=== PATIENT | male | born 1990 | race Caucasian/White ===

== ENCOUNTER 2019-07-15 12:09 | Emergency (ER) | payer OTHER, SELFPAY ==
--- NOTE | ~2019-07-15 | XR_ITS ---
EXAMINATION: XR shoulder RT min 2V INDICATION: Right shoulder pain, initial encounter TECHNIQUE: Four views of the right shoulder are submitted. COMPARISON: None FINDINGS: There is an acute fracture at the distal aspect of the clavicle. Acromioclavicular joint al ignment is maintained. The glenohumeral joint space is normal. Soft tissue swelling surrounds the fra cture. IMPRESSION: Acute fracture of the distal clavicle. Reviewed, dictated and finalized at location A.
--- NOTE | ~2019-07-15 | XR_ITS ---
EXAMINATION: XR knee LT min 4V DATE: 07/15/2019 14:22 INDICATION: Left knee pain, initial encounter TECHNIQUE: Three views of the left knee were obtained. COMPARISON: None. FINDINGS: There is an oblique lucency at the superolateral aspect of the patella. Joint spaces are no rmal with no erosions. No joint effusion/synovitis. There is anterior soft tissue swelling of the k nee. IMPRESSION: 1. Oblique lucency at the superolateral aspect of the patella suspicious for acute fracture, bipartit e patella considered less likely. Reviewed, dictated and finalized at location A. IMPRESSION: 1. Oblique lucency at the superolateral aspect of the patella suspicious for ac lyle fracture, bipartite patella considered less likely.
--- NOTE | ~2019-07-15 | XR_ITS ---
EXAMINATION: XR knee RT 3V DATE: 07/15/2019 14:22 INDICATION: Right knee pain TECHNIQUE: Three views of the right knee were obtained. COMPARISON: None. FINDINGS: Alignment is normal. No fracture or osteochondral lesion. Joint spaces are normal with no e rosions. No joint effusion/synovitis. There is medial knee soft tissue swelling. IMPRESSION: 1. Soft tissue swelling without acute osseous abnormality. Reviewed, dictated and finalized at location A.
--- NOTE | ~2019-07-15 | CT_ITS ---
EXAMINATION: CT brain wo con INDICATION: Headache COMPARISON: None TECHNIQUE: Standard unenhanced head CT. The dose-length product (DLP) was 605.33 mGy-cm. The mA was a djusted according to patient size. Iterative reconstruction technique was employed. FINDINGS: There is no intracranial hemorrhage, acute infarction, or abnormal mass lesion. The ventric les are normal. There is no abnormal mass effect or midline shift. The mcgarry-white matter differentiat ion is normal. The basal cisterns are patent. The orbits are normal. The paranasal sinuses, mastoids and calvarium are normal. IMPRESSION: 1. No acute intracranial abnormality. Reviewed, dictated and finalized at location A.
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
--- NOTE | ~2019-07-15 | CT_ITS ---
EXAMINATION: CT cervical spine wo con DATE: 07/15/2019 14:52 INDICATION: Neck pain TECHNIQUE: Computed tomography (CT) of the cervical spine was performed without intravenous contrast. The dose-length product (DLP) was 445.40 mGy-cm. Automated exposure control and iterative reconstruc tion technique were employed. COMPARISON: None FINDINGS: There is no fracture, dislocation, or subluxation. The vertebral body heights, alignment, a nd intervertebral disc spaces are normal. The paravertebral soft tissues are unremarkable. The odonto id is intact. IMPRESSION: 1. No fracture. Reviewed, dictated and finalized at location A. IMPRESSION: 1. No fracture.
[2019-07-15 12:13] VITALS: BP 145/99; PULSE 111; RESP 18; TEMP 37; O2SAT 100
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
[2019-07-15] MEDS: LACTATED RINGERS 1,000 ML 150 ML IV CONT (13:12)
[2019-07-15 13:13] LABS: Basophils Absolute Auto 0.1 K/mm3 (0.0-0.1); Basophils Percent Auto 0.3 % (0.2-1.2); Eosinophils Percent Auto 0.1 % (0-4.4); Hematocrit 46.4 % (42.0-52.0); Hemoglobin 15.8 g/dL (14.0-18.0); Immature Granulocyte Percent A 0.6 % (0-0.5); Lymphocytes Absolute Auto 2.62 K/mm3 (0.9-3.2); Lymphocytes Percent Auto 14.5 % (18.3-44.2); Mean Corpuscular HGB Conc 34.1 g/dl (32-36); Mean Corpuscular Hemoglobin 29.1 pg (26-34); Mean Corpuscular Volume 85.5 fl (80-100); Mean Platelet Volume 12.8 fl (7.4-10.4); Monocytes Absolute Auto 1.4 K/mm3 (0.1-0.6); Monocytes Percent Auto 7.8 % (2.6-8.5); Neutrophils Absolute Auto 13.9 K/mm3 (1.3-6.7); Neutrophils Percent Auto 76.7 % (45.5-73.1); Platelet Count Result 272 k/mm3 (150-375); Red Blood Count 5.43 M/mm3 (4.6-6.20); Red Cell Distribution Width 13.1 % (11.5-14.5); White Blood Count 18.1 K/mm3 (4.5-10.0)
[2019-07-15 13:25] LABS: Ethanol < 10 mg/dL (<10)
[2019-07-15 13:30] VITALS: BP 158/91; PULSE 98; RESP 20; O2SAT 100
[2019-07-15 14:45] LABS: Estimated CRCL calculation 105 ml/min; Estimated Glomerular Filt Rate > 60
[2019-07-15 14:47] LABS: Blood Urea Nitrogen 28 mg/dL (9-20); Calcium 9.5 mg/dL (8.4-10.2); Carbon Dioxide 24 mmol/L (22-30); Chloride 107 mmol/L (98-107); Estimated CRCL calculation 132 ml/min; Estimated Glomerular Filt Rate > 60; Glucose 94 mg/dL (75-110); Sodium 143 mmol/L (137-145)
[2019-07-15 15:11] VITALS: BP 147/97; PULSE 96; RESP 16; O2SAT 99
[2019-07-15] MEDS: ACETAMINOPHEN 500 MG TABLET 1000 MG PO (16:10)
[2019-07-15 17:14] VITALS: BP 138/78; PULSE 87; RESP 16; O2SAT 99
== END 2019-07-15 17:14 | disposition home or self-care (01) ==
PROVIDERS: Emergency Provider Emergency Medicine
DX: S42.031A Displaced fracture of lateral end of right clavicle, initial encounter for closed fracture (principal); V86.06XA Driver of dirt bike or motor/cross bike injured in traffic accident, initial encounter; S81.812A Laceration without foreign body, left lower leg, initial encounter
CPT/HCPCS: 12002; 36415; 70450; 71260; 72125; 73030; 73562; 73564; 74177; 80048; 80307; 85025; 86850; 86900; 86901; 96360; 96361; 99284; A4565; A9270; J7120; Q9967